=== PATIENT | male | born 1990 | race Caucasian/White ===

== ENCOUNTER 2023-02-26 16:18 | Emergency (ER) | payer OTHER ==
[~2023-02-26] VITALS: Ht 180.3 cm; Wt 90.7 kg
[2023-02-26] MEDS ORDERED: CHLO25CA22 PO (16:45)
[2023-02-26] MEDS ORDERED: CHLORDIAZEPOXIDE HCL 25 MG CAPSULE PO ONE (17:00)
[2023-02-26] MEDS ORDERED: CHLORDIAZEPOXIDE HCL 25 MG CAPSULE ONE (17:06)
[2023-02-26 17:10] VITALS: BP 100/74; TEMP 97.7; O2SAT 99
== END 2023-02-26 17:10 ==
LOC: ER 16:32
DX: F13.239 Sedative, hypnotic or anxiolytic dependence with withdrawal, unspecified (principal); Z79.899 Other long term (current) drug therapy; Z60.2 Problems related to living alone